=== PATIENT | female | born 1935 | race Hispanic/Latino ===

== ENCOUNTER 2024-03-06 11:22 | Outpatient (RCR) | payer MEDICARE ==
[~2024-03-06 11:22] MED LIST: LIDOCAINE VISC 2% SOLN 15 ML UDC ONE; MUPIROCIN 2% OINT 22 GM TUBE ONE
== END 2024-03-08 ==
LOC: WCC 11:22
PROVIDERS: ATTEND Nurse Practitioner Family
DX: S81.802D Unspecified open wound, left lower leg, subsequent encounter (principal); R60.0 Localized edema